=== PATIENT | male | born 1995 | race Caucasian/White ===

== ENCOUNTER 2018-06-16 17:35 | Emergency (ER) | payer SELFPAY ==
[~2018-06-16] VITALS: Wt 70.5 kg
[~2018-06-16 17:35] MED LIST: ACET1TAB40 PO; IBUP-1542 PO; LORA-441 PO; RANI150T35 PO
[2018-06-16 17:40] VITALS: BP 139/72; PULSE 113; RESP 20
== END 2018-06-16 18:35 | disposition left against medical advice (07) ==
LOC: FTE 17:35
DX: Z53.21 Procedure and treatment not carried out due to patient leaving prior to being seen by health care provider (principal)